=== PATIENT | female | born 1960 | race Caucasian/White ===

== ENCOUNTER → 2021-07-25 | Outpatient (CLI) | payer OTHER ==
[~2021-07-25] MED LIST: ACETAMINOPHEN650 M5 PO; ALBUTEROL2.5 MG/31 IH; AUGMENTIN 875875 M1 PO; DIFLUCAN100 MG PO; DUONEB 2.5-0.5 M3 ML INH; GLUCOPHAGE1000 MG PO; LASIX 40 MG TAB40 M1 PO; LISINOPRIL2.5 MG PO; MICONAZOLE NITR10 GM TOP; MUCINEX600 MG PO; NEURONTIN300 MG PO; PREDNISONE 20 M20 M1 PO; PREDNISONE 20 M20 MG PO; SINGULAIR 10 MG10 M1 PO; TRELEGY ELLIPT1 EACH INH; TRULICITY0.75 MG/0. SUBQ; ZOCOR 10 MG TAB10 MG PO
== END ==
LOC: PET 09:24
PROVIDERS: ATTEND Internal Medicine Critical Care Medicine
DX: J43.8 Other emphysema (principal); R91.8 Other nonspecific abnormal finding of lung field